=== PATIENT | female | born 1960 | race Caucasian/White ===

== ENCOUNTER → 2018-02-24 | Outpatient (CLI) | payer BC ==
--- NOTE | 2018-02-24 23:13 | CTL ---
EXAMINATION TYPE: CT Low Dose Lung DATE OF EXAM ORDERED: 02/24/2018 HISTORY: 57-year-old female Personal history of nicotine dependency. Lung cancer screening CT DLP: 50.[address] CTDI: 1.3 mGy Automated exposure control for dose reduction was used. SCREENING VISIT: Baseline COMPARISON: None TECHNIQUE: Low dose computed tomography scan was performed through the chest at 1 mm thick sections a nd reconstructed images in the coronal and sagittal plane at 1 mm thick sections. Additional coronal MIP reconstruction performed. CT DIAGNOSTIC QUALITY: Satisfactory FINDINGS: Heart normal size with trace anterior basilar pericardial effusion. Coronary vascular calcifications are present Aorta normal caliber with conventional arch vessel branching anatomy. Allowing for noncontrast technique, no thoracic lymphadenopathy is identified. There is biapical pleural parenchymal scarring with upper lung paraseptal emphysema and mild centrilo bular emphysema. Mild diffuse bronchial wall thickening is also noted. Additional scattered pleural p arenchymal scarring in the periphery of the upper lobes, right greater than left. Solitary 4 mm subpleural pulmonary nodule peripheral left lower lobe, axial image 249. No consolidati on or pleural effusion. Visualized upper abdomen shows no gross abnormality. Bones: No osseous destructive process. IMPRESSION: 1. LungRADS 2 - benign; solitary 4 mm left lower lobe pulmonary nodule at baseline. 2. COPD with mild emphysema and biapical pleural-parenchymal scarring. RECOMMENDATION: 1. Continue annual low-dose CT lung cancer screening. 2. Smoking cessation. FOLLOW UP CT CHEST RECOMMENDATION: [address] LUNG RAD: Lung-Rad 2 Benign Appearance or Behavior
== END | disposition home or self-care (01) ==
LOC: RADCTMAIN 15:26
PROVIDERS: ATTEND Internal Medicine Geriatric Medicine
DX: J43.9 Emphysema, unspecified (principal); R91.1 Solitary pulmonary nodule; J94.8 Other specified pleural conditions; Z87.891 Personal history of nicotine dependence

== ENCOUNTER → 2018-03-22 | Outpatient (CLI) | payer BC ==
--- NOTE | 2018-03-23 14:01 | BD ---
EXAMINATION TYPE: Axial Bone Density DATE OF EXAM: 03/22/2018 COMPARISON: NONE CLINICAL HISTORY: 58 YR OLD FEMALE......ICD-10 CODE: M81.0 OSTEOPOROSIS Height: 66.5 Weight: 129 FRAX RISK QUESTIONS: Secondary Osteoporosis: YES 3. Menopause before 45: YES Current Tobacco Use: YES RISK FACTORS HISTORY OF: Family History of Osteoporosis: YES, HER MOTHER W/O FX Diet low in dairy products/other sources of calcium: NO Postmenopausal woman: NATURAL AT 41 YRS OLD MEDICATIONS: Prednisone or other steroids: ASTHMA INHALERS AND STEROIDS PRN How Long: ON AND OFF FOR YRS Additional Medications: LEXAPRO, NSAIDS PRN Additional History: NOTHING TO NOTE EXAM MEASUREMENTS: Bone mineral densitometry was performed using the Video[employer] System. Bone mineral density as measured about the Lumbar spine is: ----- L1-L4(G/cm2): 0.940 T Score Values are as follows: ----- L1: -2.3 ----- L2: -2.2 ----- L3: -1.5 ----- L4: -2.2 ----- L1-L4: -2.0 Bone mineral density FIRST BONE DENSITY TEST.........BASELINE STUDY Bone mineral density about the R hip (g/cm2): 0.883 Bone mineral density about the L hip (g/cm2): 0.851 T Score values are as follows: -----R Neck: -0.5 -----L Neck: -1.0 -----R Total: -1.0 -----L Total: -1.2 Bone mineral density BASELINE STUDY FRAX%s: THERE IS A 5.8% CHANCE OF A MAJOR OSTEOPOROTIC FX AND A 0.6% FOR A HIP FX....PROBABILITY OF FX IN 10 YRS TIME IMPRESSION: Osteopenia lumbar spine and bilateral femoral NOTE: T-SCORE=SD OF THE YOUNG ADULT MEAN.
--- NOTE | 2018-03-24 11:23 | MM ---
Reason for exam: screening (asymptomatic). Last mammogram was performed 2 years and 11 months ago. History: Patient is postmenopausal. Benign excisional biopsy of both breasts, March 27, 2005. Physical Findings: A clinical breast exam by your physician is recommended on an annual basis and results should be correlated with mammographic findings. MG Screening Mammo w CAD Bilateral CC and MLO view(s) were taken. Prior study comparison: April 08, 2015, left breast MG work up mamm w CAD LT. April 01, 2015, bilateral MG screening mammo w CAD. The breast tissue is heterogeneously dense. This may lower the sensitivity of mammography. No significant changes when compared with prior studies. ASSESSMENT: Negative, BI-RAD 1 RECOMMENDATION: Routine screening mammogram of both breasts in 1 year.
== END | disposition home or self-care (01) ==
LOC: RADMAMWWP 15:14
PROVIDERS: ATTEND Internal Medicine Geriatric Medicine
DX: Z12.31 Encounter for screening mammogram for malignant neoplasm of breast (principal); M85.88 Other specified disorders of bone density and structure, other site; M85.852 Other specified disorders of bone density and structure, left thigh; M85.851 Other specified disorders of bone density and structure, right thigh
CPT/HCPCS: 77067; 77080

== ENCOUNTER 2018-09-08 13:37 | Emergency (ER) | payer BC, OTHER ==
[2018-09-08 14:10] VITALS: PULSE 89; RESP 18; TEMP 97.7
[2018-09-08] MEDS ORDERED: MORPHINE SULFATE 4 MG/ML SYRINGE IVP STA (15:10)
[2018-09-08] MEDS ORDERED: SODIUM CHLORIDE 0.9% 1,000 ML IV ONE (15:10)
[2018-09-08] MEDS ORDERED: KETOROLAC 30 MG/ML 1 ML VIAL IVP STA (15:13)
[2018-09-08 15:37] LABS: Basophils % (A) 0 %; Eosinophils # (A) 0.2 k/uL (0-0.7); Eosinophils % (A) 1 %; HCT 40.2 % (34.0-46.0); Lymphocytes # (A) 1.2 k/uL (1.0-4.8); Lymphocytes % (A) 8 %; MCH 28.4 pg (25.0-35.0); MCHC 32.4 g/dL (31.0-37.0); MCV 87.6 fL (80.0-100.0); Mean Platelet Volume 6.7; Monocytes # (A) 0.9 k/uL (0-1.0); Monocytes % (A) 6 %; Neutrophils # (A) 12.5 k/uL (1.3-7.7); Neutrophils % (A) 84 %; Platelet Count 251 k/uL (150-450); RBC 4.58 m/uL (3.80-5.40); WBC 14.9 k/uL (3.8-10.6)
[2018-09-08 15:45] LABS: ALT 34 U/L (9-52); AST 29 U/L (14-36); Albumin 4.2 g/dL (3.5-5.0); Alkaline Phosphatase 80 U/L (38-126); Anion Gap 10 mmol/L; Blood Urea Nitrogen 19 mg/dL (7-17); Calcium 9.3 mg/dL (8.4-10.2); Carbon Dioxide 26 mmol/L (22-30); Chloride 102 mmol/L (98-107); Glucose 109 mg/dL (74-99); Potassium 4.1 mmol/L (3.5-5.1); Sodium 138 mmol/L (137-145); Total Bilirubin 0.5 mg/dL (0.2-1.3); Total Protein 7.1 g/dL (6.3-8.2)
--- NOTE | 2018-09-08 15:55 | XR ---
EXAMINATION TYPE: XR knee complete LT DATE OF EXAM: 09/08/2018 CLINICAL HISTORY: Left knee pain and limited range of motion after fall. TECHNIQUE: Three views of the left knee are obtained. COMPARISON: None. FINDINGS: There is no acute fracture/dislocation evident in left knee. There is mild to moderate yakelin rowing medial tibiofemoral and patellofemoral compartments. No significant spurring is seen. A poste rior fabella is noted. Increased soft tissue density suprapatellar bursa is consistent with large lamberto nt effusion. IMPRESSION: There is nonspecific large suprapatellar joint effusion. No acute fracture or dislocatio n is present.
--- NOTE | 2018-09-08 15:57 | XR ---
EXAMINATION TYPE: XR ribs RT w pa chest xray DATE OF EXAM: 09/08/2018 CLINICAL HISTORY: Chest and right-sided lateral rib pain after fall injury. TECHNIQUE: Single frontal view of the chest is obtained. A frontal and oblique images the right-sided ribs are acquired. COMPARISON: CT low dose lung screening CT February 24, 2018 FINDINGS: There is chronic emphysematous and parenchymal changes without suspicious focal air space opacity, pleural effusion, or pneumothorax seen. The cardiac silhouette size remains within normal l imits. The osseous structures are somewhat demineralized. Dedicated images of right-sided ribs show no acute displaced fracture. Overlying soft tissue is unrem arkable. IMPRESSION: 1. Chronic changes without acute pulmonary process. 2. No acute displaced right-sided rib fractures are seen.
--- NOTE | 2018-09-08 16:11 | ED ---
Fall HPI - General Chief Complaint: Fall Stated Complaint: trip & fall-[facility] Time Seen by Provider: 09/08/18 14:37 Source: patient, RN notes reviewed, old records reviewed Mode of arrival: wheelchair - History of Present Illness Initial Comments: Pt is a 58 year old female whom fell on bilateral knees at work and hit her head. 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 She complains of significant swelling nad pain over L knee. She denies previous knee injury. She reports she hit her R r ibs. - Related Data Home Medications Medication Instructions Recorded Confirmed Escitalopram [Lexapro] 10 mg PO DAILY 09/08/18 09/08/18 Ibuprofen [Motrin Ib] 400 mg PO Q6H PRN 09/08/18 09/08/18 Previous Rx's Medication Instructions Recorded Acetaminophen with Codeine 1 tab PO Q4H PRN 3 Days #18 tab 09/08/18 [Tylenol w/codeine #3] Allergies Allergy/AdvReac Type Severity Reaction Status Date / Time Penicillins Allergy Rash/Hives Verified 09/08/18 14:54 Review of Systems ROS Statement: Those systems with pertinent positive or pertinent negative responses have been documented in the HPI. ROS Other: All systems not noted in ROS Statement are negative. Past Medical History Past Medical History: No Reported History History of Any Multi-Drug Resistant Organisms: None Reported Past Surgical History: Adenoidectomy, Tonsillectomy Additional Past Surgical History / Comment(s): Bone spur removal. Past Psychological History: No Psychological Hx Reported Smoking Status: Current every day smoker Past Alcohol Use History: Rare Past Drug Use History: None Reported General Exam - General Exam Comments Initial Comments: This is a 58 year old female, moderatie discomfort. Limitations: no limitations General appearance: alert, in no apparent distress Head exam: Present: atraumatic, normocephalic, normal inspection Eye exam: Present: normal appearance, PERRL, EOMI. Absent: scleral icterus, conjunctival injection, periorbital swelling ENT exam: Present: normal exam, mucous membranes moist Neck exam: Present: normal inspection. Absent: tenderness, meningismus, lymphadenopathy Respiratory exam: Present: normal lung sounds bilaterally. Absent: respiratory distress, wheezes, rales, rhonchi, stridor Cardiovascular Exam: Present: regular rate, normal rhythm, normal heart sounds. Absent: systolic murmur, diastolic murmur, rubs, gallop, clicks Extremities exam: Present: normal inspection, full ROM, normal capillary refill, other (significant knee effusion over L knee. Pain with ROM. ). Absent: tender ness, pedal edema, joint swelling, calf tenderness Back exam: Present: normal inspection Neurological exam: Present: alert, oriented X3, CN II-XII intact Psychiatric exam: Present: normal affect, normal mood Skin exam: Present: warm, dry, intact, normal color. Absent: rash Course Vital Signs 09/08/18 09/08/18 14:08 16:35 Temperature 97.7 F Pulse Rate 89 89 Respiratory 18 18 Rate Blood Pressure 97/60 103/62 O2 Sat by Pulse 97 98 Oximetry Procedures - Orthopedic Splinting/Casting Injury #1 Side: left Lower Extremity Injury Location: knee Lower Extremity Immobilizer: knee immobilizer Other Orthopedic Equipment: crutches Medical Decision Making - Medical Decision Making 58 year old female presents to ED with complaint of falling at work, hitting head, R ribs, and L knee. She has knee effusion. Patient xray shows no fracture, CT brain is normal, labs are normal. Patient EKG shows no changes. Patient placed in knee immobilizer for L knee given referral to Ortho. Note for work. - Lab Data Result diagrams: 09/08/18 15:17 09/08/18 15:17 Lab Results 09/08/18 09/08/18 09/08/18 Range/Units 15:17 15:17 15:17 WBC 14.9 H (3.8-10.6) k/uL RBC 4.58 (3.80-5.40) m/uL Hgb 13.0 (11.4-16.0) gm/dL Hct 40.2 (34.0-46.0) % MCV 87.6 (80.0-100.0) fL MCH 28.4 (25.0-35.0) pg MCHC 32.4 (31.0-37.0) g/dL RDW 13.0 (11.5-15.5) % Plt Count 251 (150-450) k/uL Neutrophils % 84 % Lymphocytes % 8 % Monocytes % 6 % Eosinophils % 1 % Basophils % 0 % Neutrophils # 12.5 H (1.3-7.7) k/uL Lymphocytes # 1.2 (1.0-4.8) k/uL Monocytes # 0.9 (0-1.0) k/uL Eosinophils # 0.2 (0-0.7) k/uL Basophils # 0.0 (0-0.2) k/uL Sodium 138 (137-145) mmol/L Potassium 4.1 (3.5-5.1) mmol/L Chloride 102 (98-107) mmol/L Carbon Dioxide 26 (22-30) mmol/L Anion Gap 10 mmol/L BUN 19 H (7-17) mg/dL Creatinine 0.59 (0.52-1.04) mg/dL Est GFR (CKD-EPI)AfAm >90 (>60 ml/min/1.73 sqM) Est GFR (CKD-EPI)NonAf >90 (>60 ml/min/1.73 sqM) Glucose 109 H (74-99) mg/dL Calcium 9.3 (8.4-10.2) mg/dL Total Bilirubin 0.5 (0.2-1.3) mg/dL AST 29 (14-36) U/L ALT 34 (9-52) U/L Alkaline Phosphatase 80 (38-126) U/L Troponin I <0.012 (0.000-0.034) ng/mL Total Protein 7.1 (6.3-8.2) g/dL Albumin 4.2 (3.5-5.0) g/dL 09/08/18 17:46 EKG shows NSR Normal EKG. 81 bpm. AR interval 166ms. 84 ms. Qt/Qtc 396/460 ms. - Radiology Data Radiology results: report reviewed CT of the brain and C-spine shows no acute intracranial abnormalities noted. No fracture or malalignment a cervical spine. Biapical pleural parenchymal scarring and emphysema seen on patient's low-dose cancer screening on 10/25/2017.. Knee xray shows large suprapatellar effusion. Disposition Clinical Impression: Knee effusion, left Disposition: HOME SELF-CARE Condition: Good Instructions (If sedation given, give patient instructions): ACL Injury (ED) Additional Instructions: Patient is advised to follow-up promptly with data warehousing specialist for concern for ACL tear.. Take Motrin for the pain. Wear the knee immobilizer and ambulate with crutches. Patient should return to the emergency department if any alarming signs or symptoms occur. Apply ice every few hours and hold on the knee for 20 minutes. Prescriptions: Acetaminophen with Codeine [Tylenol w/codeine #3] 1 tab PO Q4H PRN 3 Days #18 tab PRN Reason: Pain Is patient prescribed a controlled substance at d/c from ED?: Yes If prescribed controlled substance>3 days was MAPS reviewed?: Prescribed <3 Days If opioid is for acute pain is fill amount 7 days or less?: Yes If Rx opioid, was Start Talking consent form obtained?: Yes Referrals: Catracho Mcleod MD [Primary Care Provider] - 1-2 days González Hidalgo DO [Medical Doctor] - 1-2 days Time of Disposition: 17:18
--- NOTE | 2018-09-08 16:35 | CT ---
EXAMINATION TYPE: CT brain cspine wo con DATE OF EXAM: 09/08/2018 COMPARISON: CT low-dose lung 02/25/2020 HISTORY: 58-year-old female Possible syncopal episode. Neck pain. CT DLP: 1209.3 mGycm Automated exposure control for dose reduction was used. Technique: Examination of the head was done in axial plane without intravenous contrast. Coronal and sagittal reconstructions performed. CT of the cervical spine was obtained in axial plane without intravenous injection of contrast mater ial. Coronal and sagittal reformatted images were obtained from the axial views for evaluation of f ractures, spinal alignment and canal. FINDINGS: Head: There is no evidence of acute intracranial hemorrhage, acute ischemic changes, mass, mass-effect, or extra-axial fluid collection. There is no effacement of cerebral sulci or basal subarachnoid cister ns. There is no hydrocephalus. There is no midline shift. [place]-white matter distinction is preserv ed. Mild mucosal thickening ethmoid air cells. Mastoid air cells well pneumatized. Orbits and globes are intact. Leftward nasal septal deviation. No calvarial fracture. Cervical spine: Stable biapical pleural parenchymal scarring and emphysematous change as compared to 02/24/2018. No craniocervical junction abnormality, predental space widening, or prevertebral soft tissue swellin g. Reversal of the normal cervical lordosis but with preserved alignment. No acute fracture of the cervical spine. Mild disc disease particularly at C4-C5 with small early dis c osteophyte complex formation. Mild neuroforaminal stenosis on the right at C4-C5. Sagittal and coronal reformatted images confirm above findings. COMBINED IMPRESSION: 1. No acute intracranial abnormality seen. 2. No acute fracture or malalignment of the cervical spine. Pronounced biapical pleural parenchymal s carring and emphysema as was seen on the patient's low-dose lung cancer screening CT of 02/24/2018.
[2018-09-08 16:45] VITALS: BP 103/62
== END 2018-09-08 17:43 | disposition home or self-care (01) ==
LOC: EC 13:37
DX: M25.462 Effusion, left knee (principal); F17.200 Nicotine dependence, unspecified, uncomplicated; Z79.899 Other long term (current) drug therapy; Z88.0 Allergy status to penicillin
CPT/HCPCS: 36415; 93005; 80053; 84484; 85025; 71101; 73562; 72125; 70450; 99284; 96374; 96375; 96361 ×2; L1830; J2270; J1885

== ENCOUNTER → 2019-03-02 | Outpatient (CLI) | payer BC, OTHER ==
--- NOTE | 2019-03-03 13:52 | MM ---
Reason for exam: screening (asymptomatic). Last mammogram was performed 11 months ago. History: Patient is postmenopausal. Benign excisional biopsy of both breasts, March 27, 2005. Took hormonal contraceptives for 3 months. Physical Findings: A clinical breast exam by your physician is recommended on an annual basis and results should be correlated with mammographic findings. MG Screening Mammo w CAD Bilateral CC and MLO view(s) were taken. Prior study comparison: March 22, 2018, bilateral MG screening mammo w CAD. April 08, 2015, left breast MG work up mamm w CAD LT. The breast tissue is heterogeneously dense. This may lower the sensitivity of mammography. No suspicious abnormality. No significant changes when compared with prior studies. ASSESSMENT: Negative, BI-RAD 1 RECOMMENDATION: Routine screening mammogram of both breasts in 1 year.
== END | disposition home or self-care (01) ==
LOC: RADMAMWWP 09:58
PROVIDERS: ATTEND Internal Medicine Geriatric Medicine
DX: Z12.31 Encounter for screening mammogram for malignant neoplasm of breast (principal)
CPT/HCPCS: 77067

== ENCOUNTER → 2019-03-08 | Outpatient (CLI) | payer BC ==
--- NOTE | 2019-03-08 09:43 | CT ---
EXAMINATION TYPE: CT chest wo con DATE OF EXAM: 03/08/2019 COMPARISON: 02/24/2018 HISTORY: 59-year-old female follow-up nodule TECHNIQUE: Contiguous axial scanning of the chest without IV contrast. Coronal and sagittal reconstru ctions performed. CT DLP: 212.7 mGycm Automated exposure control for dose reduction was used. FINDINGS: Heart normal size without pericardial effusion. Mild coronary vessel calcifications are present. Aorta normal caliber with a bovine configuration to the aortic arch. Numerous scattered nonenlarged mediastinal lymph nodes are unchanged. No thoracic lymphadenopathy by CT size criteria. Biapical pleural-parenchymal scarring. Mild upper lung centrilobular emphysema and mild dependent ate lectasis. No consolidation or pleural effusion. Stable 4 mm subpleural pulmonary nodule peripheral left base, previously better seen on the low-dose CT thin axial slices. No new pulmonary nodule. Visualized upper abdomen shows no gross abnormality. Bones: No osseous destructive process. IMPRESSION: 1. COPD WITH MILD EMPHYSEMA. 2. STABLE 4 MM SUBPLEURAL PULMONARY NODULE PERIPHERAL LEFT BASE COMPATIBLE WITH A BENIGN ETIOLOGY. IF CLINICALLY INDICATED, THE PATIENT CAN CONTINUE ANNUAL LOW-DOSE LUNG CANCER SCREENING CT.
== END | disposition home or self-care (01) ==
LOC: RADCTMAIN 08:19
PROVIDERS: ATTEND Internal Medicine Geriatric Medicine
DX: J43.9 Emphysema, unspecified (principal); R91.1 Solitary pulmonary nodule
CPT/HCPCS: 71250

== ENCOUNTER → 2020-10-30 | Outpatient (CLI) | payer BC ==
--- NOTE | 2020-10-31 06:23 | CT ---
EXAMINATION TYPE: CT chest wo con DATE OF EXAM: 10/30/2020 COMPARISON: Chest CT March 08, 2019 HISTORY: Solitary lung nodule. Pt c/o dry cough x1 month. CT DLP: 436 mGycm. Automated Exposure Control for Dose Reduction was Utilized. TECHNIQUE: CT scan of the thorax is performed without IV contrast. FINDINGS: LUNGS: [id number] underlying emphysematous change is redemonstrated with mild to moderate biapi aba pleural/parenchymal scarring. No new or enlarging greater than 5 mm pulmonary nodules. No pleural effusion or pneumothorax seen bilaterally. MEDIASTINUM: Lack of IV contrast is noted to limit evaluation for mediastinal and especially hilar ad enopathy. There are no definitive new greater than 1 cm hilar or mediastinal lymph nodes. No cardio megaly or pericardial effusion is seen. Mild coronary artery calcification redemonstrated. OTHER: No additional significant abnormality is seen. IMPRESSION: Chronic changes without acute pulmonary process. No suspicious new or enlarging greater t bernabe 5 mm nodules.
== END | disposition home or self-care (01) ==
LOC: RADCTMAIN 16:38
PROVIDERS: ATTEND Nurse Practitioner Gerontology
DX: R91.1 Solitary pulmonary nodule (principal)
CPT/HCPCS: 71250

== ENCOUNTER → 2020-12-17 | Outpatient (CLI) | payer BC ==
--- NOTE | 2020-12-17 12:50 | BD ---
EXAMINATION TYPE: Axial Bone Density DATE OF EXAM: 12/17/2020 COMPARISON: NONE CLINICAL HISTORY: Height: 5 FT 7 1/2 IN Weight: 152 FRAX RISK QUESTIONS: Alcohol (3 or more units per day): NO Family History (Parent hip fracture): NO Glucocorticoids (More than 3mos): NO (Ex: prednisone, prednisolone, methylprednisolone, dexamethasone, and hydrocortisone). History of Fracture in Adulthood: YES Secondary Osteoporosis: 1. Type 1 Diabetes: NO 2. Hyperthyroidism: NO 3. Menopause before 45: YES 4. Malnutrition: NO 5. Chronic liver disease: NO Rheumatoid Arthritis: NO Current Tobacco Use: YES RISK FACTORS HISTORY OF: Surgery to Spine/Hip(right/left)/Wrist (right/left): NO Family History of Osteoporosis: NO Active: YES Diet low in dairy products/other sources of calcium: NO Postmenopausal woman: AGE 41 NATURAL Take estrogen and/or progesterone medications: NONE Lost more than 2 inches in height since high school: NO MEDICATIONS: Additional Medications: LEXYPRO, MEDS FOR LOW BLOOD PRESSURE ,LIPITOR, VIT D, Additional History: EXAM MEASUREMENTS: Bone mineral densitometry was performed using the [employer] System. Bone mineral density as measured about the Lumbar spine is: ----- L1-L4(G/cm2): 0.936 T Score Values are as follows: ----- L2: -2.2 ----- L3: -1.6 ----- L4: -2.2 ----- L1-L4: -2.0 Bone mineral density has: DECREASED -0.7 % since study of: 2017 Bone mineral density about the R hip (g/cm2): 0.971 Bone mineral density about the L hip (g/cm2): 0.912 T Score values are as follows: -----R Neck: -0.5 -----L Neck: -0.9 -----R Total: -0.9 -----L Total: -1.2 Bone mineral density has: INCREASED 0.5 % since study of: 2018 IMPRESSION: Osteopenia. NOTE: T-SCORE=SD OF THE YOUNG ADULT MEAN.
--- NOTE | 2020-12-17 13:47 | MM ---
Reason for exam: screening (asymptomatic). Last mammogram was performed 1 year and 10 months ago. History: Patient is postmenopausal. Benign excisional biopsy of both breasts, March 27, 2005. Took hormonal contraceptives for 3 months. Physical Findings: A clinical breast exam by your physician is recommended on an annual basis and results should be correlated with mammographic findings. MG 3D Screening Mammo W/Cad Bilateral CC and MLO view(s) were taken. Prior study comparison: March 02, 2019, bilateral MG screening mammo w CAD. March 22, 2018, bilateral MG screening mammo w CAD. The breast tissue is heterogeneously dense. This may lower the sensitivity of mammography. ASSESSMENT: Negative, BI-RAD 1 RECOMMENDATION: Routine screening mammogram of both breasts in 1 year.
== END | disposition home or self-care (01) ==
LOC: RADMAMWWP 10:45
PROVIDERS: ATTEND Internal Medicine Geriatric Medicine
DX: Z12.31 Encounter for screening mammogram for malignant neoplasm of breast (principal); M85.80 Other specified disorders of bone density and structure, unspecified site; M81.0 Age-related osteoporosis without current pathological fracture
CPT/HCPCS: 77063; 77067; 77080

== ENCOUNTER → 2021-12-22 | Outpatient (CLI) | payer BC ==
--- NOTE | 2021-12-23 20:13 | MM ---
Reason for Exam: Screening (asymptomatic). Last screening mammogram was performed 12 month(s) ago. Patient History: Menarche at age 13. First Full-Term at age 21. Postmenopausal. Hormonal Contraceptives for 3 months. 03/27/2005, Bilateral Benign Excisional Biopsy. Risk Values: Chitra 5 year model risk: 1.6%. NCI Lifetime model risk: 7.5%. Prior Study Comparison: 03/22/2018 Bilateral Screening Mammogram, [facility]. 03/02/2019 Bilateral Screening Mammogram, [facility]. 12/17/2020 Bilateral Screening Mammogram, [facility]. Tissue Density: The breast tissue is heterogeneously dense. This may lower the sensitivity of mammography. Findings: Analyzed By CAD. There is no suspicious group of microcalcifications or new suspicious mass in either breast. Overall Assessment: Negative, BI-RAD 1 Management: Screening Mammogram of both breasts in 1 year. 1. Patient should continue monthly self breast exams. 2. A clinical breast exam by your physician is recommended on an annual basis. 3. This exam should not preclude additional follow-up of suspicious palpable abnormalities. Electronically signed and approved by: Whitney Serrano M.D. Radiologist
== END | disposition home or self-care (01) ==
LOC: RADMAMWWP 09:04
PROVIDERS: ATTEND Internal Medicine Geriatric Medicine
DX: Z12.31 Encounter for screening mammogram for malignant neoplasm of breast (principal); Z78.0 Asymptomatic menopausal state
CPT/HCPCS: 77063; 77067

== ENCOUNTER → 2022-06-05 | Outpatient (CLI) | payer BC ==
--- NOTE | 2022-06-05 09:21 | CTL ---
EXAMINATION TYPE: CT Low Dose Lung DATE OF EXAM ORDERED: 06/05/2022 HISTORY: 91.1 solitary pulmonary nodule. Lung cancer screening CT DLP: 70.[address] CTDI: 1.8 mGy Automated exposure control for dose reduction was used. SCREENING VISIT: Follow-up COMPARISON: CT chest 10/30/2020, 03/08/2019 TECHNIQUE: Low dose computed tomography scan was performed through the chest at 1 mm thick sections a nd reconstructed images in multiple planes at 1 mm and [address] DIAGNOSTIC QUALITY: Satisfactory FINDINGS: LUNG NODULES: Stable left lower lobe subpleural pulmonary nodule measuring 4 mm (series 4, image 239) . No new or enlarging pulmonary nodules greater than 5 mm. LUNGS: COPD: Severity: Mild Fibrosis: Severity: Mild Lymph nodes: Non- Other findings: None RIGHT PLEURAL SPACE: Effusion: None Calcification: None Thickening: Apical pleural parenchymal scarring Pneumothorax: None LEFT PLEURAL SPACE: Effusion: None Calcification: None Thickening: Apical pleural-parenchymal scarring. Pneumothorax: None HEART: Heart Size: Normal Coronary Calcification: Small Pericardial Effusion: None OTHER FINDINGS: Upper abdomen: None Bony thorax: None Supraclavicular region: None Other: None IMPRESSION: 1. Stable left lower lobe 4 mm pulmonary nodule. No new or enlarging pulmonary nodules greater than 5 mm. 2. COPD with mild emphysematous and biapical pleuroparenchymal scarring. CT LUNG RAD AND CT CHEST RECOMMENDATION: Lung-Rad 2 Benign Appearance or Behavior: Continue annual sc reening with LDCT in 12 months. S Modifier (other clinically significant findings): None
== END | disposition home or self-care (01) ==
LOC: RADCTMAIN 08:30
PROVIDERS: ATTEND Internal Medicine Geriatric Medicine
DX: Z12.2 Encounter for screening for malignant neoplasm of respiratory organs (principal); J43.9 Emphysema, unspecified; J98.4 Other disorders of lung; R91.1 Solitary pulmonary nodule; Z87.891 Personal history of nicotine dependence
CPT/HCPCS: 71271

== ENCOUNTER → 2023-04-06 | Outpatient (CLI) | payer OTHER ==
--- NOTE | 2023-04-06 13:31 | XR ---
EXAMINATION TYPE: XR chest 2V DATE OF EXAM: 04/06/2023 1:26 PM COMPARISON: Chest radiographs from 09/08/2018, CT low-dose lung cancer screening 06/05/2022 TECHNIQUE: XR chest 2V Frontal and lateral views of the chest. CLINICAL INDICATION:Female, 63 years old with history of R05.9 cough; FINDINGS: Lungs/Pleura: There is flattening of the diaphragm with increased lucency of the lungs. No evidence o f pneumothorax, pleural effusion or focal consolidation.Biapical pleural thickening. Pulmonary vascularity: Unremarkable. Heart/mediastinum: Cardiomediastinal silhouette is unremarkable. Musculoskeletal: No acute osseous pathology. IMPRESSION: 1. No acute cardiopulmonary disease process. 2. COPD changes.
== END | disposition home or self-care (01) ==
LOC: RADXRMAIN 13:09
PROVIDERS: ATTEND Internal Medicine Geriatric Medicine
DX: J44.9 Chronic obstructive pulmonary disease, unspecified (principal); R05.9 Cough, unspecified
CPT/HCPCS: 71046

== ENCOUNTER → 2024-05-01 | Outpatient (CLI) | payer OTHER ==
--- NOTE | 2024-05-07 17:44 | MM ---
Reason for Exam: Screening (asymptomatic). Last mammogram was performed 2 year(s) and 5 month(s) ago. Patient History: Menarche at age 13. First Full-Term at age 21. Postmenopausal. Hormonal Contraceptives for 3 months. 03/27/2005, Bilateral Benign Excisional Biopsy. Risk Values: Chitra 5 year model risk: 1.4%. NCI Lifetime model risk: 5.8%. Prior Study Comparison: 03/02/2019 Bilateral Screening Mammogram, [facility]. 12/17/2020 Bilateral Screening Mammogram, [facility]. 12/22/2021 Bilateral MG 3D screening mammo w/cad, [facility]. Tissue Density: The breasts are heterogeneously dense, which may obscure small masses. Findings: Analyzed By CAD. The pattern is symmetrical. No suspicious groups of microcalcifications, spiculated or lobular masses, architectural distortion or other secondary signs of malignancy are mammographically apparent. Overall Assessment: Negative, BI-RAD 1 Management: Screening Mammogram of both breasts in 1 year. A negative mammogram report should not preclude additional follow up of suspicious palpable abnormalities. Patient should continue monthly self breast exam. A clinical breast exam by your physician is recommended on an annual basis and results should be correlated with mammographic findings. Note on Chitra scores and lifetime risk: 1. A Chitra score greater than 3% is considered moderate risk. If this is the case, consider specialist referral to assess eligibility for a risk reducing agent. 2. If overall lifetime risk for the development of breast cancer is 20% or higher, the patient may qualify for future screening with alternating mammogram and breast MRI. [facility], , 05/07/2024 5:41 PM. Electronically signed and approved by: Elmer Ross D.O. Radiologis
== END | disposition home or self-care (01) ==
LOC: RADMAMWWP 07:39
PROVIDERS: ATTEND Internal Medicine Geriatric Medicine
DX: Z12.31 Encounter for screening mammogram for malignant neoplasm of breast (principal); Z78.0 Asymptomatic menopausal state; R92.333 Mammographic heterogeneous density, bilateral breasts
CPT/HCPCS: 77067